=== PATIENT | male | born 1970 | race Caucasian/White ===

== ENCOUNTER 2018-07-14 14:22 | Emergency (ER) | payer OTHER ==
--- NOTE | 2018-07-14 15:13 | ED ---
Psych HPI - General Stated Complaint: mental health Time Seen by Provider: 07/14/18 14:25 Source: patient, EMS, RN notes reviewed Mode of arrival: EMS Limitations: no limitations - History of Present Illness Initial Comments: 48-year-old male presented to the emergency department for psychiatric evaluation. Patient states that he had ongoing worsening depression. Patient states that he has had some suicidal thoughts with no plan. Patient states that he does not take any medications for depression and anxiety. He has never been admitted in the past for psychiatric evaluation. Patient states that he does take medications for chronic back issues. Patient denies any illicit drug use use or any alcohol abuse. - Related Data Home Medications Medication Instructions Recorded Confirmed Baclofen [Lioresal] 20 mg PO BID 07/14/18 07/14/18 Gabapentin 600 mg PO TID 07/14/18 07/14/18 Meloxicam [Mobic] 7.5 mg PO DAILY 07/14/18 07/14/18 oxyCODONE-APAP 7.5-325MG [Percocet 1 tab PO BID PRN 07/14/18 07/14/18 7.5-325 mg] Allergies Allergy/AdvReac Type Severity Reaction Status Date / Time No Known Allergies Allergy Unverified 07/14/18 14:49 Review of Systems ROS Statement: Those systems with pertinent positive or pertinent negative responses have been documented in the HPI. ROS Other: All systems not noted in ROS Statement are negative. Past Medical History Past Medical History: Osteoarthritis (OA) History of Any Multi-Drug Resistant Organisms: None Reported Past Surgical History: Back Surgery, Orthopedic Surgery Additional Past Surgical History / Comment(s): Foot surgery Past Psychological History: Depression Smoking Status: Current every day smoker Past Alcohol Use History: Occasional Past Drug Use History: None Reported General Exam General appearance: alert, in no apparent distress Head exam: Present: atraumatic, normocephalic, normal inspection Neck exam: Present: normal inspection, full ROM. Absent: tenderness, meningismus, lymphadenopathy Respiratory exam: Present: normal lung sounds bilaterally. Absent: respiratory distress, wheezes, rales, rhonchi, stridor Cardiovascular Exam: Present: regular rate, normal rhythm, normal heart sounds. Absent: systolic murmur, diastolic murmur, rubs, gallop, clicks Neurological exam: Present: alert, oriented X3, CN II-XII intact, reflexes normal. Absent: motor sensory deficit Psychiatric exam: Present: depressed Skin exam: Present: warm, dry, intact, normal color. Absent: rash Course Vital Signs 07/14/18 15:15 Pulse Rate 77 Respiratory 18 Rate Blood Pressure 141/100 O2 Sat by Pulse 98 Oximetry Medical Decision Making - Medical Decision Making 48-year-old male present emergency from for psychiatric evaluation. Patient was evaluated by EPS and CM. Case discussed with on-call psychiatry. They do not feel that he needs inpatient treatment. He'll be given outpatient resources and return parameters were discussed. - Lab Data Lab Results 07/14/18 Range/Units 15:44 Urine Opiates Screen Not Detected (NotDetected) Ur Oxycodone Screen Not Detected (NotDetected) Urine Methadone Screen Not Detected (NotDetected) Ur Propoxyphene Screen Not Detected (NotDetected) Ur Barbiturates Screen Not Detected (NotDetected) U Tricyclic Antidepress Not Detected (NotDetected) Ur Phencyclidine Scrn Not Detected (NotDetected) Ur Amphetamines Screen Not Detected (NotDetected) U Methamphetamines Scrn Not Detected (NotDetected) U Benzodiazepines Scrn Not Detected (NotDetected) Urine Cocaine Screen Not Detected (NotDetected) U Marijuana (THC) Screen Not Detected (NotDetected) Disposition Clinical Impression: Depression Disposition: HOME SELF-CARE Condition: Stable Instructions: Depression (ED) Additional Instructions: Please return to the Emergency Department if symptoms worsen or any other concerns. Is patient prescribed a controlled substance at d/c from ED?: No Referrals: Breezy Knutson MD [Primary Care Provider] - 1-2 days Time of Disposition: 16:44
[2018-07-14 15:17] VITALS: RESP 18
[2018-07-14 16:05] LABS: Amphetamine Screen,Urine Not Detected (NotDetected); Barbiturate Screen,Urine Not Detected (NotDetected); Benzodiazepines Screen,Urine Not Detected (NotDetected); Cocaine Screen,Urine Not Detected (NotDetected); Methadone Screen, Urine Not Detected (NotDetected); Opiate Screen,Urine Not Detected (NotDetected); Oxycodone Screen, Urine Not Detected (NotDetected); Phencyclidine Screen,Urine Not Detected (NotDetected); Tricyclic Antidepressant,Urine Not Detected (NotDetected); Urn Cannabinoid Scrn Not Detected (NotDetected)
[2018-07-14 17:29] VITALS: BP 140/95; PULSE 74; TEMP 97.9
== END 2018-07-14 17:25 | disposition home or self-care (01) ==
LOC: EC 14:22
DX: F32.9 Major depressive disorder, single episode, unspecified (principal); R45.851 Suicidal ideations; F41.9 Anxiety disorder, unspecified; M19.90 Unspecified osteoarthritis, unspecified site; F17.200 Nicotine dependence, unspecified, uncomplicated; Z79.1 Long term (current) use of non-steroidal anti-inflammatories (NSAID); Z79.899 Other long term (current) drug therapy
CPT/HCPCS: 80306; 82075; 99285